=== PATIENT | male | born 1980 | race African-American/Black ===

== ENCOUNTER 2017-09-17 06:11 | Emergency (ER) | payer BC ==
[~2017-09-17] VITALS: Ht 188 cm; Wt 86.0 kg
[2017-09-17] MEDS ORDERED: KETOROLAC 60MG/2ML VIAL IM ONE (09:30)
[2017-09-17 09:40] VITALS: BP 115/78
== END 2017-09-17 10:08 | disposition home or self-care (01) ==
LOC: ER 07:23
DX: R07.89 Other chest pain (principal); M25.512 Pain in left shoulder; V49.49XA Driver injured in collision with other motor vehicles in traffic accident, initial encounter; Y93.89 Activity, other specified; Y92.410 Unspecified street and highway as the place of occurrence of the external cause; F17.210 Nicotine dependence, cigarettes, uncomplicated; Z88.2 Allergy status to sulfonamides
CPT/HCPCS: 71010; 73030; 93005; 96372; 99284; J1885